=== PATIENT | female | born 1965 | race Hispanic/Latino ===

== ENCOUNTER → 2018-09-23 | Day surgery (SDC) | payer BC ==
[~2018-09-23] MED LIST: AMLODIPINE BESYL5 MG PO; LIDOCAINE HCL 2% LOCAL INJ 5 ML SDV VIAL INJ ONE; MIDAZOLAM HCL 2 MG/2 ML VIAL ONE; PROPOFOL IV EMULSION 10 MG/ML 50 ML VIAL ONE; SPIRONOLACTONE25 MG PO
--- OUTSIDE RECORDS SUMMARY | 2018-09-23 11:42 | XMS REPORT ---
Author [facility] Address Unknown Phone Unavailable Care Team Providers Care Patient Day Coordinator Name Role Phone Unavailable Unavailable Payers Payer Name Policy Type Policy Number Effective Date Expiration Date Problems This patient has no known problems. Allergies, Adverse Reactions, Alerts Allergy Name Allergy Type Status Severity Reaction(s) Onset Date Inactive Date Treating Clinician Comments No Known Drug Allergies DA Active U 2018-07-10 00:00:00 No Known Drug Allergies DA Active U 2018-07-08 00:00:00 Medications This patient has no known medications.
[2018-09-23 13:50] VITALS: BP 129/95
--- NOTE | 2018-09-23 20:50 | Operative Report ---
DATE OF PROCEDURE: 09/23/2018 SURGEON: Mark Lee MD PROCEDURE: EGD with esophageal dilatation note and biopsies. REFERRING PHYSICIAN: Dr. Gino Salas. INDICATION FOR PROCEDURE: Dysphagia, heartburn, indigestion. MEDICATIONS: The patient was done under MAC, please see anesthesiologist's note. PROCEDURE IN DETAIL: With the patient in left lateral decubitus position, a flexible fiberoptic Olympus gastroscope was introduced into the esophagus under direct visualization without any difficulty. There was some patchy erythema noted in distal esophagus. A mild stricture was noted at the GE junction that was dilated to size 52-Japanese Cerda. The scope was then advanced with ease into the stomach. Mucosa overlying the antrum and the body revealed some diffuse erythema, mild to moderate edema and biopsies were obtained and sent to stain for H pylori. Pylorus appeared to be of normal contour and shape, and was intubated with ease and the scope was advanced all the way to the second portion of the duodenum. Biopsies were obtained from the proximal second portion and duodenal bulb to rule out sprue. The scope was then withdrawn back into the stomach and retroflexed, mucosa overlying the fundus and cardia appeared to be within normal limits. The scope was then straightened out and it was subsequently withdrawn. The patient tolerated procedure well. IMPRESSION: 1. Distal esophagitis, mild. 2. Esophageal stricture at GE junction dilated to size 52-Japanese Cerda. 3. Gastritis, biopsied. Biopsies sent to stain for H pylori. 4. Rule out sprue. PLAN: Follow up histology. Initiate Protonix 40 mg one p.o. q.a.m. a.c. Mark Lee MD [facility] [place][id number] cc: Dr. Gino Salas
== END | disposition home or self-care (01) ==
LOC: OR 11:40
PROVIDERS: ATTEND Internal Medicine Gastroenterology
DX: K22.2 Esophageal obstruction (principal); K20.9 Esophagitis, unspecified; K29.50 Unspecified chronic gastritis without bleeding; K31.9 Disease of stomach and duodenum, unspecified; R13.10 Dysphagia, unspecified; R12 Heartburn; I10 Essential (primary) hypertension; R73.03 Prediabetes; Z79.84 Long term (current) use of oral hypoglycemic drugs; K76.0 Fatty (change of) liver, not elsewhere classified; Z01.810 Encounter for preprocedural cardiovascular examination
CPT/HCPCS: 43239; 43450; 93005; J2001; J2250; J2704